=== PATIENT | female | born 1990 | race Caucasian/White ===

== ENCOUNTER 2019-10-06 10:04 | Outpatient (RCR) | payer OTHER, SELFPAY ==
--- NOTE | ~2019-10-06 | US_ITS ---
EXAMINATION: US OB follow up DATE: 10/06/2019 11:51 INDICATION: Abdominal injury. Third trimester. TECHNIQUE: Real-time ultrasound of the pelvis was performed. COMPARISON: None. FINDINGS: There is a single living fetus in vertex presentation. The placenta is fundal. heart rate is 1 49 beats per minute (bpm). The amniotic fluid index is 18.1 cm, which is normal. The following biometric data were obtained: Biparietal diameter (BPD): 8.9 cm; head circumference (HC): 30.3 cm; abdominal circumference (AC): 33 .3 cm; femur length (FL): 6.6 cm. These measurements are discordant with high cephalic index and low HC/AC and FL/AC ratios. Estimated weight is 2772 g +/- 416 g, which correlates with 63rd percentile when 11/08/19 is used as estimated date of delivery. As single measurements, these parameters are each equal to the following estimated gestational ages: BPD: 35 weeks 6 days. HC: 33 weeks 4 days. AC: 37 weeks 1 days. FL: 33 weeks 5 days. estimated gestational age based solely on measurements from this exam is 35 weeks 1 days +/- 2 weeks 3 days. IMPRESSION: 1. Single living fetus in vertex presentation. 2. Estimated weight is 2772 g +/- 416 g, which correlates with 63rd percentile when 11/08/19 is used as estimated date of delivery. 3. Discordant biometrics with low cephalic index and HC/AC and FL/AC ratios. Reviewed, dictated and finalized at location A. [facility] IMPRESSION: 1. Single living fetus in vertex presentation. 2. Estimated weight is 2772 g +/- 416 g, which correlates with 63rd perc entile when 11/08/19 is used as estimated date of delivery. 3. Discordant biometrics with low cephalic index and HC/AC and FL/AC ratios.
[2019-10-06 11:18] VITALS: BP 111/71; PULSE 103
== END 2019-11-07 07:35 | disposition home or self-care (01) ==
LOC: ANHOBOP 10:04
PROVIDERS: Visit Provider Obstetrics & Gynecology
DX: O99.89 Other specified diseases and conditions complicating pregnancy, childbirth and the puerperium (principal); W19.XXXA Unspecified fall, initial encounter; Z3A.35 35 weeks gestation of pregnancy
CPT/HCPCS: 59025; 76816

== ENCOUNTER 2019-11-01 11:00 | Outpatient (CLI) | payer OTHER, SELFPAY ==
--- NOTE | ~2019-11-01 | US_ITS ---
EXAMINATION: US OB /maternal detail DATE: 11/01/2019 12:06 INDICATION: survey TECHNIQUE: Multiple obstetric sonographic images performed. FINDINGS: Ultrasound dated 10/06/2019 There is a single living fetus in vertex presentation. The placenta is fundal without placenta previ a. Amniotic fluid volume is increased. MICKI measures 28 cm., Normal range for gestational age is 7.2-2 2.6 cm. cardiac activity and movement is noted with a heart rate of 145 beats per minute. The following anatomy was identified as normal: 4 chamber heart 3 vessel cord cord insertion kidneys urinary bladder stomach spine diaphragm The intracranial structures are not visualized due to advanced gestational age and lie. The following biometric data were obtained: BPD: 93mm corresponds to gestational age 37 weeks 4 days. Head circumference: 339 mm corresponds to gestational age 38 weeks 6 days. Abdominal circumference: 362 mm corresponds to gestational age 40 weeks 1 days. Femur length: 69 mm corresponds to gestational age 35 weeks 2 days. Head circumference to abdominal circumference ratio: 0.94 (normal range for expected gestational age is 0.9-1.06). Estimated weight: 3547 grams +/- 532 grams using Hadlock method. IMPRESSION: 1: Single living intrauterine with an estimated gestational age of 38weeks 6days by initial ultrasound measurements, with an EDC of 11/09/2019 in vertex presentation.] 2. Survey limited for evaluation of intracranial structures due to advanced gestational age. The rem ainder of the survey is unremarkable. 3: Polyhydramnios. MICKI measures 28 cm. Reviewed, dictated and finalized at location A. [facility] IMPRESSION: 1: Single living intrauterine with an estimated gestational age of 38 weeks 6days by initial ultrasound measurements, with an EDC of 11/09/2019 in ve rtex presentation.] 2. Survey limited for evaluation of intracranial structures due to advanced ge stational age. The remainder of the survey is unremarkable. 3: Polyhydramnios. MICKI measures 28 cm.
== END 2019-11-01 11:01 | disposition home or self-care (01) ==
LOC: ANHIMG 11:04
PROVIDERS: Visit Provider Obstetrics & Gynecology
DX: O40.3XX0 Polyhydramnios, third trimester, not applicable or unspecified (principal); Z3A.38 38 weeks gestation of pregnancy
CPT/HCPCS: 76805

== ENCOUNTER 2019-11-04 16:44 | Outpatient (CLI) | payer OTHER, SELFPAY ==
[2019-11-04 16:59] LABS: Hematocrit 39.7 % (37.0-47.0); Hemoglobin 13.5 g/dL (12.0-15.0); Mean Corpuscular Hemoglobin 31.8 pg (26-34); Mean Corpuscular Volume 93.6 fl (80-100); Mean Platelet Volume 10.8 fl (7.4-10.4); Platelet Count Result 262 k/mm3 (150-375); Red Blood Count 4.24 M/mm3 (4.2-5.4); Red Cell Distribution Width 12.8 % (11.5-14.5); White Blood Count 15.1 K/mm3 (4.5-10.0)
[2019-11-05 07:16] LABS: Rapid Plasma Reagin Non-Reactive (NonReactive)
== END 2019-11-04 16:45 | disposition home or self-care (01) ==
LOC: ANHLAB 16:47
PROVIDERS: Visit Provider Obstetrics & Gynecology
DX: Z34.93 Encounter for supervision of normal pregnancy, unspecified, third trimester (principal); Z3A.00 Weeks of gestation of pregnancy not specified
CPT/HCPCS: 36415; 85027; 86592; 86850; 86900; 86901

== ENCOUNTER 2019-11-05 05:05 | Inpatient (IN) | payer OTHER, SELFPAY ==
--- NOTE | 2019-10-21 14:56 | PC.NURSE ---
VERIFIED WITH OR SCHEDULE AND PATIENT--C/S WITH BILATERAL TUBAL LIGATION ON 11/05/19 AT 0730 PATIENT GIVEN REQUISITION FOR LAB DRAW ON 11/04/19
[2019-11-05] VITALS (65 sets, daily range): BP systolic 88–117; BP diastolic 41–77; PULSE 38–95; RESP 11–20; TEMP 36.3–37.4; O2SAT 79–100; BMI 34.5
[2019-11-05] MEDS: LACTATED RINGERS 1,000 ML 125 ML IV CONT (05:41)
--- NOTE | 2019-11-05 05:45 | LDADM ---
This patient, Ale Chun, was admitted to Labor/Delivery/Recovery 119 on 11/05/19 at 05:05. Plans for labor, pain management and were discussed with patient. Patient/family oriented to hospital policies and general routines including ID bracelet, bed and alarms, visiting hours, pain management, procedures, bathroom and other care routines, personal items, smoking policy, room service/diet and guest tray routines, security routines, and visiting hours. Patient/Family are encouraged to report perceived risks to care and to ask questions if they do not understand what they are told or what they should do. See OBIX for further documentation.
--- NOTE | 2019-11-05 07:05 | WPDANESEPPF ---
Anes - Initial Pre Proc Eval Procedure: Operation Date: 11/05/19 07:30 Proposed Procedures p Repeat Section with Bilateral Tubal Ligation - Mohit Moore MD Date/Time: 11/05/19 07:05 Surgeon: Mohit Moore MD Pre Op Diagnosis: REPEAT Patient Data Age: 28 Gender: F Height: 5 ft 1 in Weight: 83 kg Last Vital Signs Pulse 70 11/05/19 06:46 BP 110/69 11/05/19 06:46 Allergies Allergy/AdvReac Type Severity Reaction Status Date / Time Sulfa (Sulfonamide Allergy Mild Hives / Verified 10/21/19 14:34 Antibiotics) Red Face Home Medications Medication Instructions Recorded Confirmed Type PNV cmb#95-ferrous fumarate-FA 1 tablet PO DAILY 08/22/19 09/17/19 History [] Patient hx anesthesia problems: none Family hx anesthesia problems: none [facility] Past Medical History Medical History (Updated 11/05/19 @ 07:05 by Joshua Snow MD) Anxiety Surgical History Surgical History Previous delivery, delivered Family History Family History Other Unknown family medical history Social History Social History Smoking status: Former smoker Tobacco type: cigarettes Smoking end date: 02/28/19 Substance use: never Spiritual care concerns: No Anes - Eval Final PreProcedure Day of Procedure 11/05/19 07:05 Patient weight: overweight Heart: regular rate and rhythm Lungs: clear to auscultation Airway: Mallampati scale class II Neurological: alert and oriented ASA classification: II Emergent: no Anesthetic plan: proceed Anesthesia type and monitoring: regional spinal and standard monitoring Informed Consent: The patient's anesthetic plan and its attendant risks and benefits were discussed with the patient/family/POA. Questions were solicited and answers provided to the satisfaction of the patient/family/POA.
--- NOTE | 2019-11-05 07:12 | PM.IMHP ---
H&P: HPI History of Present Illness Chief complaint: REPEAT Narrative: Ale Chun is a 28 year old female Who presents for repeat delivery. records are on the chart without significant complication. We have also discussed permanent sterilization and she does desire to proceed with a tubal ligation. We have stressed the permanence failure rate and increased risk of ectopic and regret. Patient states good understanding and does desire to proceed. PMFSH Past Medical History Medical History Anxiety Surgical History Surgical History Previous delivery, delivered Family History Family History Other Unknown family medical history Social History Social History Smoking status: Former smoker Tobacco type: cigarettes Smoking end date: 02/28/19 Substance use: never Spiritual care concerns: No Meds Home Medications and Allergies Home Medications Medication Instructions Recorded Confirmed Type PNV cmb#95-ferrous fumarate-FA 1 tablet PO DAILY 08/22/19 09/17/19 History [] Allergies Allergy/AdvReac Type Severity Reaction Status Date / Time Sulfa (Sulfonamide Allergy Mild Hives / Verified 10/21/19 14:34 Antibiotics) Red Face Vital Signs Vital Signs - 24 hr 11/05/19 05:25 11/05/19 05:31 11/05/19 05:46 Pulse Rate 89 83 86 Blood Pressure 115/69 104/72 108/53 L 11/05/19 06:01 11/05/19 06:16 11/05/19 06:31 Pulse Rate 78 79 71 Blood Pressure 108/69 117/71 103/67 11/05/19 06:46 Pulse Rate 70 Blood Pressure 110/69 Exam Const: General: cooperative and healthy appearing Chest: Chest palpation & inspection: normal inspection of the chest Resp: Effort & Inspection: normal respiratory effort GI: Inspection: other (gravid uterus) Assessment and Plan Additional Plan Proceed with repeat delivery and bilateral tubal ligation.
--- NOTE | 2019-11-05 08:17 | P.PCNOB_ITS ---
OB - Delivery Note Procedure Procedure: Procedures Operation Date: 11/05/19 07:30 <No data on this case meets the specified criteria> events: Previous Route of delivery: other (tubal ligation) Specimen: Yes Estimated blood loss (mL): 500 Anesthesia type: Spinal Disposition: PACU [place] Baby Weeks of gestation at delivery: 39 gender: Female Weight (pounds): 7 Weight (ounces): 13 presentation: vertex Placenta delivery description: Expressed cord vessel description: 3 Vessels score one minute: 7 score five minutes: 8 Narrative: The patient was prepped and draped in usual sterile manner for this procedure. Thin still incision was made on the skin which was then carried down to the fascial layer. Fascial incision was then made and this was extended bilaterally with the length of the skin incision. Superiorly and inferiorly dissected away from the rectus muscles. Peritoneum was readily entered and the bladder flap was developed without difficulty. Uterus scored and lower segment incision was made bilaterally. Membranes ruptured with clear fluid and the vertex was delivered with nuchal cord noted readily reduced. Rest of baby was delivered cord clamped and cut placenta delivered manually and the uterus was then exteriorized. Cleared of membranes and clots. Uterus was then closed using 0 Monocryl running interlocking manner with good approximation and hemostasis stasis noted. Tension and placed the fallopian tubes which revealed the right to be surgically absent from a prior ectopic and the left tube was then grasped with Kimberli clamp doubly ligated and incised. The pedicle was hemostatic. Uterus is then returned to the abdomen and again noted to be hemostatic and the left tubal stump was intact. All subfascial tissue noted hemostatic however this small amount of oozing due to adhesions in the lower segment therefore Nikunj was placed the fascia was then closed using a 0 Vicryl from both angles and approximated in the midline. Subcutaneous tissue was approximated 0 plain suture. Laura were then used to approximate the skin edges. At this point seizure was considered terminated immediate postop condition of mother and baby were both excellent.
--- NOTE | 2019-11-05 08:23 | PM.OBPRVD ---
OB - Delivery Note Procedure Procedure: Procedures 1. Repeat low transverse section. 2. Left salpingectomy ( prior right salpingectomy due to ectopic ) Operation Date: 11/05/19 07:30 <No data on this case meets the specified criteria> events: Previous Estimated blood loss (mL): 500 Anesthesia type: Spinal Baby Weeks of gestation at delivery: 39 Infant gender: Female Weight (pounds): 7 Weight (ounces): 13 presentation: vertex Placenta delivery description: Expressed score one minute: 7 score five minutes: 8
[2019-11-05] MEDS: MORPHINE SULFATE 2 MG/ML INJ IV PUSH (09:33)
[2019-11-05] MEDS: LORATADINE 10 MG TABLET (09:37)
--- NOTE | 2019-11-05 11:04 | OBPPTRN ---
Patient transferred to post room # 287 via stretcher. Support person present. Oriented to unit, room, information board, rooming in, admission packet and security measures. Patient verbalizes understanding.
[2019-11-05] MEDS: IBUPROFEN 600 MG TABLET PO ×2 (12:19→19:49)
[2019-11-05] MEDS: DEXTROSE 5%/0.45% SOD CHL 1,000 ML 125 ML IV CONT (16:00)
[2019-11-05] MEDS: DOCUSATE SODIUM 100 MG CAPSULE PO (16:44)
[2019-11-05] MEDS: CALCIUM CARBONATE (TUMS) 500 MG (200 MG ELEMENTAL) (21:45)
[2019-11-06] MEDS: IBUPROFEN 600 MG TABLET PO ×2 (04:10→13:39)
[2019-11-06] MEDS: SIMETHICONE 80 MG TAB.CHEW PO ×2 (04:10→09:11)
[2019-11-06 04:30] VITALS: BP 113/86; PULSE 80; RESP 16; TEMP 36.8; O2SAT 99
[2019-11-06 05:43] LABS: Basophils Absolute Auto 0.1 K/mm3 (0.0-0.1); Basophils Percent Auto 0.2 % (0.2-1.2); Eosinophils Percent Auto 0.2 % (0-4.4); Hematocrit 38.8 % (37.0-47.0); Hemoglobin 13.1 g/dL (12.0-15.0); Immature Granulocyte Absolute 0.22 K/mm3 (0.00-0.031); Immature Granulocyte Percent A 0.9 % (0-0.5); Lymphocytes Absolute Auto 1.45 K/mm3 (0.9-3.2); Lymphocytes Percent Auto 6.2 % (18.3-44.2); Mean Corpuscular HGB Conc 33.8 g/dl (32-36); Mean Corpuscular Hemoglobin 31.9 pg (26-34); Mean Corpuscular Volume 94.4 fl (80-100); Monocytes Absolute Auto 1.8 K/mm3 (0.1-0.6); Monocytes Percent Auto 7.6 % (2.6-8.5); Neutrophils Absolute Auto 19.9 K/mm3 (1.3-6.7); Neutrophils Percent Auto 84.9 % (45.5-73.1); Platelet Count Result 237 k/mm3 (150-375); Red Blood Count 4.11 M/mm3 (4.2-5.4); Red Cell Distribution Width 12.7 % (11.5-14.5); White Blood Count 23.4 K/mm3 (4.5-10.0)
[2019-11-06 07:45] VITALS: BP 102/73; PULSE 98; RESP 18; TEMP 37.3; O2SAT 98
[2019-11-06] MEDS: DOCUSATE SODIUM 100 MG CAPSULE PO (09:08)
[2019-11-06] MEDS: MULTIVIT/MIN/PREN/FOL AC/IRON TABLET 1 TAB PO (09:08)
--- NOTE | 2019-11-06 12:34 | PM.OBPNVD ---
OB - PN: Subj Subjective Date/time seen: 11/06/19 12:34 No complaints today, patient would like to be discharged home to be with her daughter who was transferred to [facility] overnight due to breathing issues. Pain is well controlled on pain meds. She is tolerating regular diet, passing small amounts of gas, no N/V. She is voiding. Her bleeding is normal. She is ambulating w/o symptoms of anemia. Breast pumping. OB - PN: Obj Data Labs CBC & Chem 7: 11/06/19 04:17 Labs: Laboratory Results - last 24 hr 11/06/19 04:17 WBC 23.4 H RBC 4.11 L Hgb 13.1 Hct 38.8 MCV 94.4 MCH 31.9 MCHC 33.8 RDW 12.7 Plt Count 237 MPV 11.0 H Immature Gran % (Auto) 0.9 H Neut % (Auto) 84.9 H Lymph % (Auto) 6.2 L [place] % (Auto) 7.6 Eos % (Auto) 0.2 Baso % (Auto) 0.2 Lymph # (Auto) 1.45 [place] # (Auto) 1.8 H Eos # (Auto) 0.0 Baso # (Auto) 0.1 Abs Immat Gran (auto) 0.22 H Absolute Neuts (auto) 19.9 H Absolute Nucleated RBC 0.0 Nucleated RBC % 0.0 OB - PN A/P Assessment and Plan (1) Delivered by delivery following previous delivery: Code(s): O34.219 - Maternal care for unspecified type scar from previous delivery Status: Acute Assessment and Plan: POD#1 - meeting all post-op milestones - labs/vitals/exam stable - Ok to be discharged home today to see daughter - Pelvic rest, no heavy lifting, incision, ER return precautions discussed Time Spent With Patient Time: Total time spent is greater than 50% in coordination of care (as documented) at patient's floor/unit and/or counseling patient: Review of Systems Constitutional: Constitutional: Denies chills and Denies fatigue Cardiovascular: Cardiovascular: Denies rapid heart rate Respiratory: Respiratory: Denies cough and Denies dyspnea Gastrointestinal: Gastrointestinal: Reports belching, Denies nausea and Denies vomiting Genitourinary: Genitourinary: Denies dysuria and Reports pelvic pain Neurologic: Denies headache(s) Exam Const: General: comfortable, no acute distress, alert and awake Resp: Effort & Inspection: normal respiratory effort Auscultation: clear to auscultation bilaterally Cardio: Rate: regular rate GI: Auscultation: normal bowel sounds Other: mildly distended, normal bowel sounds, tympanic, appropriately tender to palpation, soft, fundus firm below umbilicus, incision covered with clean dressing. Psych: Appearance: grossly normal Affect: normal affect Attitude: cooperative
[2019-11-06] MEDS: TETANUS,DIPHTHERIA,AC PERTUSSIS ADULT 0.5 ML (ADACEL) IM (13:40)
--- NOTE | 2019-11-06 19:18 | PC.NURSE ---
1345 Discharge papers reviewed with mother and were signed; she voiced understanding; F/U visit deferred per order of Dr. Lewis
--- NOTE | 2019-11-07 09:10 | PM.OBDSVD ---
DS: Diagnosis Admitting Diagnosis Admitting Diagnosis: Maternal care for unspecified type scar from previous delivery OB - DS: Summary OB Procedures : None OB Procedures Intrapartum: and Tubal ligation OB Procedures: : None Peripartum Data Procedures: Procedures Operation Date: 11/05/19 07:30 Actual Procedures Side Surgeon p Repeat Section with Bilateral Tubal Ligation Mohit Moore MD Time Spent with Patient Time attestation: Total time spent providing and/or coordinating discharge services: DS: Data Data Completed and Pending Completed studies during hospitalization: Pending at discharge 11/05/19 08:01 Surgical [PTH] Routine Discharge Plan Discharge Attending physician on discharge: Roxana Lewis Discharging Clinician: Roxana Lewis Anticipated Discharge Date/Time: 11/06/19 15:00 Patient Disposition: Home, Self-Care Activity: pelvic rest Diet: regular Wound Care Instructions: keep dressing dry Discharge Instructions: Education: Mom and Baby Guide Given to patient Follow-Up: Call your delivering provider's office for an appointment to be seen in: 2 Weeks f/u visit deferred by order of Dr. Lewis; pt to call office for an appointment in 2 weeks, or be sooner if concerns. BREAST CARE: 1. Wear a snug supportive bra. 2. For engorgement discomfort: Breast Feeding: A. Apply warm moist washcloths B. Express milk as needed to relieve engorgement C. Wear loose clothing Bottle Feeding: A. May apply ice packs 3. For sore nipples: A. Identify correct latch-on B. Apply warm moist washcloths before and after nursing C. Air dry nipples after nursing D. May apply Lansinoh cream to nipples ABDOMINAL INCISION: (if applicable) 1. Allow incision to air dry 2. Do NOT use lotions for powders on your incision 3. When showering, allow soap and water to run over the incision, but do not wash incision EPISIOTOMY/PERINEAL CARE: 1. Until bleeding stops, use your fabiola bottle after urinating 2. Change your pad frequently throughout the day 3. No tub baths until seen by your physician - You may shower ACTIVITY: 1. Rest as much as possible. 2. Do not exercise or lift anything heavier than your baby (such as laundry or other children.) 3. Avoid stairs or driving as much as possible. 4. Do not put anything into the vagina. No douching, tampons, or sexual activity until seen by physician. NOTIFY PHYSICIAN IF YOU HAVE ANY QUESTIONS OR IF ANY OF THE FOLLOWING SYMPTOMS OCCUR: 1. If your incision becomes red, swollen, or more painful than what you have experienced in the hospital. 2. If your vaginal bleeding becomes foul smelling. 3. If your vaginal bleeding becomes more heavy than a period or if your bleeding changes from pink to bright red. However, you may pass an occasional walnut-sized clot once or twice for the first week . 4. If you experience a sharp, shooting pain in you calves. 5. If you discover a hard, reddened area on your breast or if you experience flu-like symptoms. 6. Temperature of 100. 4 or higher DIET: 1. Eat regular, well-balanced meals. 2. Drink plenty of fluids daily. If , drink to thirst.remove dressing Sunday; keep incision clean, dry Patient Instructions: Antibiotic Form Stand Alone Forms: General Discharge Information Follow-up/Referrals: Mohit Moore MD [Physician] - 2 Weeks Discharge Medications: New docusate sodium 100 mg Capsule 100 mg PO BID 14 Days Qty: 28 RF: 0 hydrocodone-acetaminophen 5-325 mg Tablet 1 tab PO Q4H PRN (Reason: Moderate Pain (4-6)) 3 Days Qty: 18 RF: 0 ibuprofen 600 mg Tablet 600 mg PO Q6H 14 Days Qty: 56 RF: 0 Continued PNV cmb#95-ferrous fumarate-FA [] 28 mg iron- 800 mcg Tablet 1 tablet PO DAILY RF: 0 Date of adm
== END 2019-11-06 13:54 | disposition home or self-care (01) | DRG 540 ==
LOC: ANHOB2 11-06 12:34 → ANHLDR 11-07 12:39 → ANHOB2 11-07 12:39
PROVIDERS: Admitting Provider Obstetrics & Gynecology; Visit Provider Obstetrics & Gynecology
PROC: 10D00Z1 Extraction of Products of Conception, Low, Open Approach (ICD-10-PCS; CPT 59514; principal; 2019-11-05 07:30)
DX: O34.211 Maternal care for low transverse scar from previous cesarean delivery (principal); Z37.0 Single live birth; Z3A.39 39 weeks gestation of pregnancy; O69.81X0 Labor and delivery complicated by cord around neck, without compression, not applicable or unspecified; Z30.2 Encounter for sterilization
CPT/HCPCS: 36415; 85025; 88302; 90715; A9270; J0131; J1200; J2270; J2274; J2405; J2590; J3010; J7120